=== PATIENT | female | born 1965 | race African-American/Black ===

== ENCOUNTER 2020-04-24 21:57 | Emergency (ER) | payer BC ==
[~2020-04-24] VITALS: Ht 182.9 cm; Wt 66.2 kg
[2020-04-24 22:06] VITALS: BP 166/92
--- NOTE | 2020-04-24 22:12 | NUR ---
PT AMBULATED TO LOBBY W/ STEADY GAIT. PT PROVIDED W/ URINE CUP FOR ENCOURAGEMENT OF URINE SAMPLE.
--- NOTE | 2020-04-24 22:34 | NUR ---
AMBULATED TO ER BED 6
--- NOTE | 2020-04-24 23:27 | NUR ---
MOTHER SHAUNNA CALLED [phone]
[2020-04-24] MEDS: ONDANSETRON 4 MG/2 ML VIAL IVP ONE (23:46)
[2020-04-24] MEDS: MORPHINE SULFATE 4 MG/ML SYR IVP ONE (23:47)
[2020-04-24] MEDS: LACTATED RINGERS 1,000 ML IV ONE (23:48)
--- NOTE | 2020-04-24 23:50 | NUR ---
PT STILL C/O OF NAUSEA, AWARE
--- NOTE | 2020-04-24 23:54 | NUR ---
PT COMING IN WITH C/O N/V SINCE 3 PM TODAY. PT UNABLE TO HOLD DOWN ANY FLUIDS OR FOOD. PT STATES SHE IS DEHYDRATED AND HER B/P IS ELEVATED. ABD SOFT AND NONTENDER UPON PALPATION. DENIES ANY ABD PAIN. MOIST MUCUS MEMBRANE, GOOD CAP REFILL. DENIES FEVER, NO SOB, NO DIARRHEA. PT PLACED IN BED, BED IN LOWEST POSITION AND SIDERAIL UP X 1. NKA HX - HTN, GASTRIC BYPASS (2012), MITROVALVE PROLAPSE
[2020-04-24 23:57] LABS: BASOPHILS % (AUTO) 0.1 % (0.0-2.0); HEMATOCRIT 43.6 % (36-48); HEMOGLOBIN 14.5 g/dL (12.0-16.0); LYMPHOCYTES # (AUTO) 0.5 K/uL (2.5-16.5); LYMPHOCYTES % (AUTO) 9.2 % (20.5-51.1); MEAN CORPUSCULAR HEMOGLOBIN 28 pg (27-31); MEAN CORPUSCULAR HGB CONC 33 g/dL (33-37); MEAN CORPUSCULAR VOLUME 85.3 fL (80-94); MONOCYTES # (AUTO) 0.2 K/uL (0.8-1.0); MONOCYTES % (AUTO) 3.4 % (1.7-9.3); NEUTROPHILS # (AUTO) 4.9 K/uL (1.8-7.7); NEUTROPHILS % (AUTO) 87.3 % (42.2-75.2); PLATELET COUNT (AUTO) 184 K/uL (140-450); RED BLOOD CELL COUNT(AUTO) 5.12 MIL/uL (4.20-5.40); RED CELL DISTRIBUTION WIDTH 13.1 % (11.6-13.7); WHITE BLOOD COUNT (AUTO) 5.7 K/uL (4.8-10.8)
[2020-04-25 00:01] LABS: ALBUMIN 4.6 g/dL (3.4-5.0); ANION GAP 13.3 (8-16); CARBON DIOXIDE 26.2 mmol/L (21-32); CREATININE 1.1 mg/dL (0.6-1.3); POTASSIUM 3.5 mmol/L (3.5-5.1); TOTAL BILIRUBIN 0.5 mg/dL (0.0-1.0)
[2020-04-25] MEDS: METOCLOPRAMIDE 10 MG/2 ML INJ VIAL IVP ONE (00:03)
[2020-04-25 00:13] LABS: APPEARANCE,URINE CLEAR (CLEAR); BILIRUBIN,URINE NEGATIVE (NEGATIVE); BLOOD, URINE TRACE-I (NEGATIVE); COLOR,URINE YELLOW (YELLOW); LEUKOCYTE ESTERASE ,URINE NEGATIVE (NEGATIVE); NITRITE, URINE NEGATIVE (NEGATIVE); UGLUCOSE NEGATIVE (NEGATIVE)
--- NOTE | 2020-04-25 00:32 | NUR ---
PT UP AND AMBULATED TO RESTROOM WITH STEADY GAIT. STILL C/O NAUSEA, NO PAIN.
[2020-04-25 00:34] LABS: WBC,URINE 0-5 /HPF (0-5)
--- NOTE | 2020-04-25 00:45 | NUR ---
SPOKE TO PT'S MOTHER, IKE, SHE PROVIDED MORE HISTORY ON PT, ADVISED MD OF UPDATED HISTORY 10/2017 - PT FOUND UNRESPONSIVE AND HAD A CARDIAC ARREST, UNABLE TO FIND SPECIFIC REASON 03/17/18 - PT STARTED WITH HER FIRST EPISODE OF DRY HEAVING, THIS WAS 6 DAYS AFTER HER . SHE HAS HAD MULTIPLE EPISODES AND NO SPECIFIC REASON FOUND. PT HAS BEEN TO MULTIPLE HOSPITALS IN [place] AND [place] REGARDING MEDICAL ISSUES, WITH NO DIAGNOSIS GIVEN.
--- NOTE | 2020-04-25 01:29 | NUR ---
PT STATES NAUSEA IS FINALLY GONE. PT UP TO RESTROOM AGAIN, AMBULATES WITH STEADY GAIT.
--- NOTE | 2020-04-25 01:35 | NUR ---
CALLED RADIOLOGY TO SEE HOW MUCH LONGER FOR CT. STATES PT SHOULD BE NEXT
--- NOTE | 2020-04-25 01:38 | NUR ---
X-RAY AT BEDSIDE FOR CHEST X-RAY. IV TO RIGHT FOREARM INFILTRATED, IV D/C'ED AND WARM COMPRESS PROVIDED TO PT FOR SITE
--- NOTE | 2020-04-25 01:38 | NUR ---
PT IV INFILITRATED AT THIS TIME. IV DISCONTINUED.
--- NOTE | 2020-04-25 01:49 | NUR ---
PT TAKEN TO CT VIA W/C
--- NOTE | 2020-04-25 02:03 | NUR ---
PT GAVE PERMISSION TO GIVE HER MOTHER AN UPDATE. PT MOTHER UPDATED AT THIS TIME.
[2020-04-25 03:11] VITALS: BP 127/85
== END 2020-04-25 03:11 | disposition home or self-care (01) ==
LOC: MED 21:57
DX: R11.2 Nausea with vomiting, unspecified (principal); I10 Essential (primary) hypertension; R73.9 Hyperglycemia, unspecified; Z98.84 Bariatric surgery status
CPT/HCPCS: 36415; 74176; 80053; 81001; 83690; 85025; 87086; 96361; 96374; 96375; 99285; J2270; J2405; J2765